=== PATIENT | male | born 1995 | race Caucasian/White ===

== ENCOUNTER 2018-03-01 10:53 | Emergency (ER) | payer OTHER ==
[2018-03-01 11:00] VITALS: RESP 18
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
[2018-03-01 13:16] VITALS: BP 128/82; PULSE 64; TEMP 98
== END 2018-03-01 13:15 | disposition home or self-care (01) ==
LOC: EC 10:53
DX: H00.011 Hordeolum externum right upper eyelid (principal); J45.909 Unspecified asthma, uncomplicated; F17.200 Nicotine dependence, unspecified, uncomplicated; Z88.0 Allergy status to penicillin
CPT/HCPCS: 99283

== ENCOUNTER 2018-12-26 12:35 | Emergency (ER) | payer OTHER ==
[2018-12-26 12:49] VITALS: BP 113/58; TEMP 98
[2018-12-26] MEDS ORDERED: IPRATROPIUM-ALBUTEROL 3 ML NEB INHALATION STA ×2 (12:49→13:55)
--- NOTE | 2018-12-26 12:50 | ED ---
SOB HPI - General Stated Complaint: TAYLOR Source: patient, RN notes reviewed, old records reviewed Mode of arrival: ambulatory Limitations: no limitations - History of Present Illness Initial Comments: This is a 23-year-old male the ER for evaluation, patient is a history of smoking history of asthma. Patient states he has quit smoking for 5 days of his shortness of breath as of late. No chest pain, no fevers. She has no prior admissions in the hospital for shortness of breath. No travel history or sick contacts. Patient states his wheezing cough is been increased for the last 5 days. Eyelids were unable to smoke. Patient has no significant medical history otherwise. Takes no medications MD Complaint: shortness of breath, cough -: week(s) Radiation: other (No pain) Consistency: constant Improves With: rest Worsens With: exertion Known History Of: asthma Context: recent URI - Related Data Home Medications Medication Instructions Recorded Confirmed Albuterol Inhaler [Ventolin 1 - 2 puff INHALATION RT-Q6H PRN 10/16/14 12/26/18 Inhaler] Previous Rx's Medication Instructions Recorded Albuterol Nebulized [Ventolin 2.5 mg INHALATION Q4H PRN #25 nebu 12/26/18 Nebulized] Albuterol Sulfate [Proair Hfa] 1 - 2 puff INHALATION Q4H PRN #1 12/26/18 inhaler Azithromycin [Zithromax Z-pack] 0 mg PO DIRECTED #1 pack 12/26/18 predniSONE 50 mg PO DAILY #5 tab 12/26/18 Allergies Allergy/AdvReac Type Severity Reaction Status Date / Time amoxicillin Allergy Severe Anaphylaxis Verified 12/26/18 13:19 Penicillins Allergy Rash/Hives Verified 12/26/18 13:19 Review of Systems ROS Statement: Those systems with pertinent positive or pertinent negative responses have been documented in the HPI. ROS Other: All systems not noted in ROS Statement are negative. Past Medical History Past Medical History: Asthma History of Any Multi-Drug Resistant Organisms: None Reported Additional Past Surgical History / Comment(s): right thumb surgery Past Psychological History: Anxiety, Depression Smoking Status: Current every day smoker Past Alcohol Use History: Occasional Past Drug Use History: Marijuana General Exam Limitations: no limitations General appearance: alert, in no apparent distress Head exam: Present: atraumatic, normocephalic, normal inspection Eye exam: Present: normal appearance, PERRL, EOMI. Absent: scleral icterus, conjunctival injection, periorbital swelling ENT exam: Present: normal exam, mucous membranes moist Neck exam: Present: normal inspection. Absent: tenderness, meningismus, lymphadenopathy Respiratory exam: Present: normal lung sounds bilaterally, wheezes. Absent: respiratory distress, rales, rhonchi, stridor Cardiovascular Exam: Present: normal rhythm, tachycardia, normal heart sounds. Absent: systolic murmur, diastolic murmur, rubs, gallop, clicks GI/Abdominal exam: Present: soft, normal bowel sounds. Absent: distended, tenderness, guarding, rebound, rigid Extremities exam: Present: normal inspection, full ROM, normal capillary refill. Absent: tenderness, pedal edema, joint swelling, calf tenderness Back exam: Present: normal inspection Neurological exam: Present: alert, oriented X3, CN II-XII intact Psychiatric exam: Present: normal affect, normal mood Skin exam: Present: warm, dry, intact, normal color. Absent: rash Course Vital Signs 12/26/18 12/26/18 12/26/18 12:47 13:12 13:28 Temperature 98.0 F Pulse Rate 121 H 124 H 117 H Respiratory 22 20 18 Rate Blood Pressure 113/58 O2 Sat by Pulse 95 Oximetry 12/26/18 12/26/18 14:25 14:33 Temperature Pulse Rate 111 H 112 H Respiratory 18 18 Rate Blood Pressure O2 Sat by Pulse Oximetry - Reevaluation(s) Reevaluation #1: 12/26/18 14:56 Medical records reviewed Reevaluation #2: 12/26/18 14:56 Symptoms significantly improved with second breathing treatment Medical Decision Making - Medical Decision Making 23 male the ER for evaluation of significant asthma exacerbation. Patient does not want hospital admission currently, urged to continue to quit smoking. Patient given breathing treatments and steroids and can be discharged home - Radiology Data Radiology results: report reviewed (Chest x-rays negative for acute disease), image reviewed Disposition Clinical Impression: Asthmatic bronchitis, Asthma exacerbation Disposition: HOME SELF-CARE Condition: Good Instructions (If sedation given, give patient instructions): Asthma (ED) Prescriptions: predniSONE 50 mg PO DAILY #5 tab Albuterol Sulfate [Proair Hfa] 1 - 2 puff INHALATION Q4H PRN #1 inhaler PRN Reason: Shortness Of Breath Albuterol Nebulized [Ventolin Nebulized] 2.5 mg INHALATION Q4H PRN #25 nebu PRN Reason: Shortness Of Breath Azithromycin [Zithromax Z-pack] 0 mg PO DIRECTED #1 pack Is patient prescribed a controlled substance at d/c from ED?: No Referrals: None,Stated [Primary Care Provider] - 1-2 days
[2018-12-26 13:28] VITALS: RESP 18
[2018-12-26] MEDS ORDERED: DEXAMETHASONE 4 MG TAB PO STA (13:55)
--- NOTE | 2018-12-26 14:25 | XR ---
EXAMINATION TYPE: XR chest 1V portable DATE OF EXAM: 12/26/2018 COMPARISON: None recent HISTORY: Cough and shortness of breath for 6 days TECHNIQUE: Single frontal view of the chest is obtained. FINDINGS: There is no focal air space opacity, pleural effusion, or pneumothorax seen. The cardiac silhouette size is within normal limits. Lungs are hyperexpanded and erin appear somewhat prominent. The osseous structures are intact. IMPRESSION: No acute process. Pulmonary hyperinflation and prominence of the erin raises suspicion f or COPD and possible pulmonary arterial hypertension although given the patient's age these findings may simply relate to vascular prominence and pulmonary hyperinflation. Correlation with pulmonary fun ction tests is recommended.
[2018-12-26 14:33] VITALS: PULSE 112
== END 2018-12-26 14:58 | disposition home or self-care (01) ==
LOC: EC 12:35
DX: J45.901 Unspecified asthma with (acute) exacerbation (principal); R00.0 Tachycardia, unspecified; Z87.891 Personal history of nicotine dependence; Z88.0 Allergy status to penicillin
CPT/HCPCS: 94640 ×2; 71045; 99285; J8540

== ENCOUNTER 2019-01-05 09:29 | Emergency (ER) | payer OTHER ==
[2019-01-05 09:35] VITALS: RESP 18
[2019-01-05] MEDS ORDERED: IPRATROPIUM-ALBUTEROL 3 ML NEB INHALATION STA (09:56)
[2019-01-05 10:32] VITALS: PULSE 83
--- NOTE | 2019-01-05 10:47 | XR ---
EXAMINATION TYPE: XR chest 2V DATE OF EXAM ORDERED: 01/05/2019 HISTORY: Difficulty breathing . REFERENCE: Previous study dated 12/26/2018. FINDINGS: The lungs are clear. Pleural spaces are clear. Heart size is normal. IMPRESSION: NORMAL CHEST.
[2019-01-05 11:24] VITALS: BP 128/85; TEMP 97.4
--- NOTE | 2019-01-05 11:51 | ED ---
General Adult HPI - General Chief complaint: Shortness of Breath Stated complaint: Sob/cough Time Seen by Provider: 01/05/19 09:30 Source: patient, RN notes reviewed Limitations: no limitations - History of Present Illness Initial comments: This is a 23-year-old male who presents emergency Department complaining of difficulty breathing over the last 2 days. Patient states he is a smoker though he states he quit this morning. Patient comes in stating his asthma got worse. Patient states he has been coughing low but no sputum production. Patient denies any fever chills. Patient denies any chest pain or palpitations per patient denies abdominal pain patient denies nausea vomiting diarrhea. - Related Data Home Medications Medication Instructions Recorded Confirmed Albuterol Nebulized [Ventolin 2.5 mg INHALATION RT-Q4H PRN 01/05/19 01/05/19 Nebulized] Previous Rx's Medication Instructions Recorded predniSONE 40 mg PO DAILY #8 tab 01/05/19 Allergies Allergy/AdvReac Type Severity Reaction Status Date / Time amoxicillin Allergy Severe Anaphylaxis Verified 01/05/19 09:47 Penicillins Allergy Rash/Hives Verified 01/05/19 09:47 Review of Systems ROS Statement: Those systems with pertinent positive or pertinent negative responses have been documented in the HPI. ROS Other: All systems not noted in ROS Statement are negative. Past Medical History Past Medical History: Asthma History of Any Multi-Drug Resistant Organisms: None Reported Additional Past Surgical History / Comment(s): right thumb surgery Past Psychological History: Anxiety, Depression Smoking Status: Current every day smoker Past Alcohol Use History: Occasional Past Drug Use History: Marijuana General Exam - General Exam Comments Initial Comments: GENERAL: Patient is well-developed and well-nourished. Patient is nontoxic and well- hydrated and is in mild distress. ENT: Neck is soft and supple. No significant lymphadenopathy is noted. Oropharynx is clear. Moist mucous membranes. Neck has full range of motion without eliciting any pain. EYES: The sclera were anicteric and conjunctiva were pink and moist. Extraocular movements were intact and pupils were equal round and reactive to light. Eyelids were unremarkable. PULMONARY: Diffuse expiratory wheezing CARDIOVASCULAR: There is a regular rate and rhythm without any murmurs gallops or rubs. ABDOMEN: Soft and nontender with normal bowel sounds. SKIN: Skin is clear with no lesions or rashes and otherwise unremarkable. NEUROLOGIC: Patient is alert and oriented x3. Cranial nerves II through XII are grossly intact. Motor and sensory are also intact. Normal speech, volume and content. Symmetrical smile. MUSCULOSKELETAL: Normal extremities with adequate strength and full range of motion. LYMPHATICS: No significant lymphadenopathy is noted PSYCHIATRIC: Normal psychiatric evaluation. Limitations: no limitations Course Vital Signs 01/05/19 01/05/19 01/05/19 09:32 10:21 10:29 Temperature 97.9 F Pulse Rate 91 72 76 Respiratory 18 Rate Blood Pressure 117/77 O2 Sat by Pulse 98 Oximetry 01/05/19 01/05/19 10:32 11:22 Temperature 97.4 F L Pulse Rate 83 83 Respiratory 18 18 Rate Blood Pressure 128/85 O2 Sat by Pulse 98 99 Oximetry Disposition Clinical Impression: Asthma exacerbation Disposition: HOME SELF-CARE Instructions (If sedation given, give patient instructions): Asthma (ED) Prescriptions: predniSONE 40 mg PO DAILY #8 tab Is patient prescribed a controlled substance at d/c from ED?: No Referrals: None,Stated [Primary Care Provider] - 1-2 days Time of Disposition: 11:51
[2019-01-05] MEDS ORDERED: LORazepam 1 MG TAB PO STA (12:10)
== END 2019-01-05 12:16 | disposition home or self-care (01) ==
LOC: EC 09:29
DX: J45.901 Unspecified asthma with (acute) exacerbation (principal); F17.200 Nicotine dependence, unspecified, uncomplicated; Z88.0 Allergy status to penicillin
CPT/HCPCS: 71046; 94640; 99285

== ENCOUNTER 2019-11-23 11:43 | Emergency (ER) | payer OTHER ==
[2019-11-23] MEDS ORDERED: SODIUM CHLORIDE 0.9% 500 ML 500 ML IV STA (12:18)
[2019-11-23] MEDS ORDERED: SODIUM CHLORIDE 0.9% 1,000 ML IV STA ×3 (12:18→13:12)
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
[2019-11-23 12:35] LABS: Basophils # (A) 0.1 k/uL (0-0.2); Basophils % (A) 0 %; Eosinophils # (A) 0.2 k/uL (0-0.7); Eosinophils % (A) 1 %; HGB 17.3 gm/dL (13.0-17.5); Lymphocytes # (A) 1.7 k/uL (1.0-4.8); Lymphocytes % (A) 7 %; MCH 30.1 pg (25.0-35.0); MCHC 33.3 g/dL (31.0-37.0); MCV 90.2 fL (80.0-100.0); Mean Platelet Volume 8.2; Monocytes # (A) 1.5 k/uL (0-1.0); Monocytes % (A) 6 %; Neutrophils % (A) 85 %; Platelet Count 374 k/uL (150-450); RBC 5.77 m/uL (4.30-5.90); RDW 13.2 % (11.5-15.5); WBC 24.8 k/uL (3.8-10.6)
[2019-11-23 12:43] LABS: ALT 30 U/L (4-49); AST 36 U/L (17-59); African American GFR (CKD) >90 (>60 ml/min/1.73 sqM); Alcohol <10 mg/dL; Alkaline Phosphatase 110 U/L (38-126); Anion Gap 15 mmol/L; Blood Urea Nitrogen 9 mg/dL (9-20); Calcium 9.8 mg/dL (8.4-10.2); Carbon Dioxide 18 mmol/L (22-30); Chloride 105 mmol/L (98-107); Creatine Kinase 164 U/L (55-170); Glucose 126 mg/dL (74-99); Magnesium 1.6 mg/dL (1.6-2.3); Non-African American GFR(CKD) >90 (>60 ml/min/1.73 sqM); Phosphorus 2.8 mg/dL (2.5-4.5); Potassium 4.1 mmol/L (3.5-5.1); Sodium 138 mmol/L (137-145); Total Bilirubin 1.4 mg/dL (0.2-1.3); Total Protein 7.8 g/dL (6.3-8.2)
[2019-11-23] MEDS ORDERED: ACET/COD 300 MG/30 MG STARTER PACK 6 TAB BTL PO STA (12:57)
[2019-11-23] MEDS ORDERED: MORPHINE SULFATE 4 MG/ML SYRINGE IVP STA (12:57)
[2019-11-23] MEDS ORDERED: KETOROLAC 30 MG/ML 1 ML VIAL IVP STA (12:57)
[2019-11-23 13:59] VITALS: BP 143/94; PULSE 87; RESP 16; TEMP 97.8
== END 2019-11-23 15:08 | disposition home or self-care (01) ==
LOC: EC 11:43
DX: T24.202A Burn of second degree of unspecified site of left lower limb, except ankle and foot, initial encounter (principal); T24.201A Burn of second degree of unspecified site of right lower limb, except ankle and foot, initial encounter; T23.202A Burn of second degree of left hand, unspecified site, initial encounter; T23.201A Burn of second degree of right hand, unspecified site, initial encounter; T31.0 Burns involving less than 10% of body surface; J45.909 Unspecified asthma, uncomplicated; F17.200 Nicotine dependence, unspecified, uncomplicated; Z88.0 Allergy status to penicillin; X08.8XXA Exposure to other specified smoke, fire and flames, initial encounter
CPT/HCPCS: 36415; 80053; 82550; 83735; 84100; 85025; 80320; 99284; 96365; 96375 ×2; 96361; J2270; J0690; J1885

== ENCOUNTER 2022-05-05 09:22 | Inpatient (IN) | payer OTHER ==
--- NOTE | 2022-05-05 09:28 | ED ---
Psych HPI - General Stated Complaint: Mental Health Time Seen by Provider: 05/05/22 09:27 Source: patient, RN notes reviewed Mode of arrival: ambulatory Limitations: no limitations - History of Present Illness Initial Comments: This a 26-year-old male presents emergency Department with chief complaint of alcohol abuse, anxiety depression, withdrawal. Patient states that he has been drinking very heavily for last 4-5 years. Patient states she drinks 7 to beers daily suppression 14 beers daily. He states he does have withdrawal symptoms and cleaning severe shaking nausea vomiting diarrhea. He states he tends not to wait that long because he knows this can happen. He does admit to alcohol use just prior arrival. Patient has underlying anxiety, depression he states he does not have any current thoughts of suicide. Patient has no physical complaints. He has been talking the counseling advised him come emergency department for treatment as patient is concerned about his withdrawal. Patient denies history of pancreatitis, no known hepatitis. - Related Data Home Medications Medication Instructions Recorded Confirmed No Known Home Medications 05/05/22 05/05/22 Allergies Allergy/AdvReac Type Severity Reaction Status Date / Time amoxicillin Allergy Severe Anaphylaxis Verified 05/05/22 12:28 Penicillins Allergy Rash/Hives Verified 05/05/22 12:28 Review of Systems ROS Statement: Those systems with pertinent positive or pertinent negative responses have been documented in the HPI. ROS Other: All systems not noted in ROS Statement are negative. Past Medical History Past Medical History: Asthma History of Any Multi-Drug Resistant Organisms: None Reported Additional Past Surgical History / Comment(s): right thumb surgery Past Psychological History: Anxiety, Depression Past Alcohol Use History: Occasional Past Drug Use History: Marijuana General Exam Limitations: no limitations General appearance: alert, in no apparent distress Head exam: Present: atraumatic, normocephalic, normal inspection Eye exam: Present: normal appearance, PERRL, EOMI. Absent: scleral icterus, conjunctival injection, periorbital swelling ENT exam: Present: normal exam, normal oropharynx, mucous membranes moist Neck exam: Present: normal inspection, full ROM. Absent: tenderness, meningismus, lymphadenopathy Respiratory exam: Present: normal lung sounds bilaterally. Absent: respiratory distress, wheezes, rales, rhonchi, stridor Cardiovascular Exam: Present: regular rate, normal rhythm, normal heart sounds. Absent: systolic murmur, diastolic murmur, rubs, gallop, clicks GI/Abdominal exam: Present: soft, normal bowel sounds. Absent: distended, tenderness, guarding, rebound, rigid Neurological exam: Present: alert Skin exam: Present: warm, dry, intact, normal color. Absent: rash Course Vital Signs 05/05/22 05/05/22 05/05/22 09:31 10:35 11:56 Temperature 98 F 98.2 F Pulse Rate 117 H 94 98 Respiratory 18 16 16 Rate Blood Pressure 168/92 145/94 134/96 O2 Sat by Pulse 96 97 98 Oximetry Medical Decision Making - Medical Decision Making 18-year-old presented for alcohol withdrawal, alcohol abuse. Patient's found to have alcohol hepatitis, started to have severe withdrawal symptoms. Patient will be admitted for alcohol withdrawal, further monitoring management. - Lab Data Result diagrams: 05/05/22 10:34 05/05/22 10:34 Lab Results 05/05/22 05/05/22 Range/Units 10:34 10:34 WBC 4.9 (3.8-10.6) k/uL RBC 5.53 (4.30-5.90) m/uL Hgb 18.1 H (13.0-17.5) gm/dL Hct 50.8 (39.0-53.0) % MCV 91.9 (80.0-100.0) fL MCH 32.8 (25.0-35.0) pg MCHC 35.7 (31.0-37.0) g/dL RDW 12.9 (11.5-15.5) % Plt Count 187 (150-450) k/uL MPV 8.0 Neutrophils % 77 % Lymphocytes % 11 % Monocytes % 8 % Eosinophils % 1 % Basophils % 2 % Neutrophils # 3.8 (1.3-7.7) k/uL Lymphocytes # 0.5 L (1.0-4.8) k/uL Monocytes # 0.4 (0-1.0) k/uL Eosinophils # 0.1 (0-0.7) k/uL Basophils # 0.1 (0-0.2) k/uL Sodium 140 (137-145) mmol/L Potassium 3.7 (3.5-5.1) mmol/L Chloride 102 (98-107) mmol/L Carbon Dioxide 19 L (22-30) mmol/L Anion Gap 19 mmol/L BUN 5 L (9-20) mg/dL Creatinine 0.60 L (0.66-1.25) mg/dL Est GFR (CKD-EPI)AfAm >90 (>60 ml/min/1.73 sqM) Est GFR (CKD-EPI)NonAf >90 (>60 ml/min/1.73 sqM) Glucose 123 H (74-99) mg/dL Calcium 9.8 (8.4-10.2) mg/dL Magnesium 2.1 (1.6-2.3) mg/dL Total Bilirubin 2.1 H (0.2-1.3) mg/dL AST 297 H (17-59) U/L ALT 198 H (4-49) U/L Alkaline Phosphatase 116 (38-126) U/L Total Protein 9.2 H (6.3-8.2) g/dL Albumin 5.7 H (3.5-5.0) g/dL Lipase 75 (23-300) U/L Disposition Clinical Impression: Alcohol abuse, Alcohol withdrawal, Alcoholic hepatitis Disposition: ADMITTED IP TO THIS HOSP Condition: Fair Referrals: None,Stated [Primary Care Provider] - 1-2 days [facility] [NON-STAFF] - 1-2 days Forms: Outpatient Counseling, Inp Substance Abuse Facilities Time of Disposition: 12:36
[2022-05-05] MEDS ORDERED: SODIUM CHLORIDE 0.9% 1,000 ML IV ONE (09:51)
[2022-05-05] MEDS ORDERED: SODIUM CHLORIDE 0.9% 500 ML 500 ML IV ONE (09:51)
[2022-05-05 10:39] LABS: Basophils # (A) 0.1 k/uL (0-0.2); Basophils % (A) 2 %; Eosinophils # (A) 0.1 k/uL (0-0.7); Eosinophils % (A) 1 %; HCT 50.8 % (39.0-53.0); HGB 18.1 gm/dL (13.0-17.5); Lymphocytes # (A) 0.5 k/uL (1.0-4.8); Lymphocytes % (A) 11 %; MCH 32.8 pg (25.0-35.0); MCHC 35.7 g/dL (31.0-37.0); MCV 91.9 fL (80.0-100.0); Monocytes # (A) 0.4 k/uL (0-1.0); Monocytes % (A) 8 %; Neutrophils # (A) 3.8 k/uL (1.3-7.7); Neutrophils % (A) 77 %; Platelet Count 187 k/uL (150-450); RBC 5.53 m/uL (4.30-5.90); RDW 12.9 % (11.5-15.5); WBC 4.9 k/uL (3.8-10.6)
[2022-05-05 10:51] LABS: ALT 198 U/L (4-49); AST 297 U/L (17-59); African American GFR (CKD) >90 (>60 ml/min/1.73 sqM); Albumin 5.7 g/dL (3.5-5.0); Alkaline Phosphatase 116 U/L (38-126); Anion Gap 19 mmol/L; Blood Urea Nitrogen 5 mg/dL (9-20); Calcium 9.8 mg/dL (8.4-10.2); Carbon Dioxide 19 mmol/L (22-30); Chloride 102 mmol/L (98-107); Glucose 123 mg/dL (74-99); Lipase 75 U/L (23-300); Magnesium 2.1 mg/dL (1.6-2.3); Non-African American GFR(CKD) >90 (>60 ml/min/1.73 sqM); Potassium 3.7 mmol/L (3.5-5.1); Sodium 140 mmol/L (137-145); Total Bilirubin 2.1 mg/dL (0.2-1.3); Total Protein 9.2 g/dL (6.3-8.2)
[2022-05-05] MEDS ORDERED: LORazepam 0.5 MG TAB PO PRN (12:34)
[2022-05-05] MEDS ORDERED: LORazepam 1 MG TAB PO PRN ×4 (12:34)
[2022-05-05] MEDS ORDERED: LORazepam 2 MG/ML INJ IV PRN (12:34)
[2022-05-05] MEDS ORDERED: NALOXONE 0.4 MG/ML 1 ML VIAL IV PRN (12:38)
[2022-05-05] MEDS ORDERED: ONDANSETRON 4 MG/2 ML VIAL IVP PRN (12:38)
[2022-05-05] MEDS: SODIUM CHLORIDE 0.9% 1,000 ML IV SCH (14:37)
[2022-05-05 15:08] LABS: Amphetamine Screen,Urine Not Detected (NotDetected); Barbiturate Screen,Urine Not Detected (NotDetected); Benzodiazepines Screen,Urine Not Detected (NotDetected); Cocaine Screen,Urine Not Detected (NotDetected); Methadone Screen, Urine Not Detected (NotDetected); Opiate Screen,Urine Not Detected (NotDetected); Oxycodone Screen, Urine Not Detected (NotDetected); Phencyclidine Screen,Urine Not Detected (NotDetected); Tricyclic Antidepressant,Urine Not Detected (NotDetected); Urn Cannabinoid Scrn Detected (NotDetected)
[2022-05-05] MEDS: SERTRALINE 50 MG TAB PO SCH (15:38)
--- NOTE | 2022-05-05 15:44 | P.CN ---
Psychiatric Consult - . Consult date: 05/05/22 Consult:: 05/05/22 13:09 IDENTIFYING DATA: This patient is a 26-year-old male who currently lives with his mother, brother to kids and stepfather. They live in a house. He is from the unemployed since December. He used to work in a gas station. REASON FOR REFERRAL: Psychiatry was consulted for depression and alcohol abuse HISTORY OF PRESENT ILLNESS: The patient presented to the hospital on 05/05 for alcohol abuse, depression and withdrawal. Patient apparently has been reporting increase in his drinking for the past 4 or 5 years. Patient apparently was presenting with nausea and vomiting and also with withdrawal symptoms. Patient has a history of depression and anxiety apparently. Patient's LFTs were elevated and total bilirubin as well. Patient was seen lying in the bed and was fairly appropriate in attempting to be directable. He appeared to be somewhat anxious and had tremors in his hands and states that he is going through withdrawals at this time and presented the hospital for "detoxing". He claims that he does have some underlying depression and anxiety and claims that he does have some childhood trauma. He claims that his father "left it side of the road when I was small" and claims that one of his 3 children about 2 years ago which she has not been able to cope with well. He claims that he does get into arguments and has tension with his stepfather in the home. He claims that he lost his job in December and has been struggling a bit financially. He claims that his sleep and appetite are poor. He claims that he was drinking about 6-7 tall boys of beer per day. He claims that he does not have any history of DTs however does usually have tremors and starts sweating and usually relapses back on drinking before he withdrawals. Denies any withdrawal seizures in the past. He claims that they did have an intervention at home for him with his family which caused him to come into the hospital. At this time patient denies any suicidal or homical ideations, intent or plan. Patient denies any auditory, visual hallucinations and denies any paranoia or delusions. Patients admits to using alcohol as noted above. He claims that he has not gone to rehab before. He claims that he uses marijuana frequently and smokes cigarettes daily. PAST PSYCHIATRIC HISTORY: Patient has a a history of alcohol use disorder, underlying depression and anxiety. Patient denies being on any psychiatric medications. Patient denies any previous psychiatric hospitalizations. Patient denies any psychiatric outpatient follow-up. He claims that he used to talk with a therapist over the phone with "better help". He states that his phone therapy session stopped in summer because he could not afford it any longer. Patient denies any history of suicide attempts in the past. Past Medical History: Asthma History of Any Multi-Drug Resistant Organisms: None Reported ALLERGIES: as per EMR. CHEMICAL DEPENDENCY HISTORY: as per HPI. FAMILY PSYCHIATRIC/SUBSTANCE USE HISTORY: He claims that his uncle committed suicide in his . SOCIAL HISTORY: Patient was born and raised in [facility] and also in [place]. He claims that he completed up to 11th grade in school. He states that he does not have any legal history. He claims that he has 2 kids, lives with one of his kids, his brother step father and also has mother. The house. He claims that he is unemployed at this time over used to work in a gas station.. MENTAL STATUS EXAM: General Appearance: Patient appears to be , longer hair, stated age is alert, pleasant, and attempts to be cooperative. Tremors in his hands. Patient appears to have fair hygiene and grooming wearing hospital gown with fair eye contact. Behavior: Patient is calmly lying in bed without any agitated behavior. Attempts to cooperate. Pleasant. Speech: Patient's speech is fluent and nonpressured. Hesitant Mood/Affect: Patient reports their mood is "but better now", affect is congruent Suicidality/Homicidality: Patient denies having any suicidal or homicidal ideation intent or plan. Perceptions: Patient denies any visual hallucinations and denies any auditory hallucinations Though content/process: There is no evidence of any delusional thought content and thought process is linear and goal-directed. Rambles at times. Memory and concentration: AOX3, grossly intact for the purposes of this session. Can spell "WORLD" backwards Judgment and insight: Fair IMPRESSIONS: Alcohol use disorder, severe dependence, currently in withdrawal History of depressive disorder History of anxiety disorder Cannabis use disorder Nicotine dependence PLAN: -At this time patient DOES NOT meet criteria for inpatient psychiatric admission. -Would recommend the following medication changes/additions: Started Librium 20 mg 4 times a day for alcohol withdrawal with the plan to taper down. Acamprosate 333 mg 3 times a day for alcohol cravings, trazodone 50 mg daily at bedtime for insomnia/mood, Zoloft 50 mg daily for mood/anxiety -CIWA protocol with PRN Ativan for alcohol withdrawal. Continue to monitor vital signs. -utility service worker to provide patient with outpatient mental health/psychiatry resources for appropriate follow up upon discharge -Fiction Writer spoke with patient about substance abuse and the harmful effects on medical and mental health, patient verbally understood and agreed. -utility service worker to provide patient substance use treatment resources including AA/NA meetings in the community. -utility service worker to provide patient with access line number to call for inpatient substance rehab -Communicated plan to patient's nurse -Will continue to follow along -patient wants to do outpatient substance abuse treatment instead of inpatient rehab. -Please contact with any questions. 05/05/22 15:38
[2022-05-05] MEDS: ACAMPROSATE CALCIUM 333 MG TABLET.DR PO SCH (18:04)
[2022-05-05 19:38] VITALS: TEMP 98
[2022-05-05] MEDS ORDERED: traZODone HCL 50 MG TAB PO SCH (21:00)
[2022-05-05] MEDS ORDERED: ALBUTEROL NEBULIZED 2.5 MG/3 ML INHALATION PRN (23:00)
[2022-05-05] MEDS ORDERED: ACETAMINOPHEN TAB 325 MG TAB PO PRN (23:02)
--- NOTE | 2022-05-05 23:17 | HP ---
HISTORY AND PHYSICAL CHIEF COMPLAINT: Alcohol withdrawal. HISTORY OF PRESENT ILLNESS: This is a 26-year-old gentleman with a past medical history of asthma, was admitted with alcohol intoxication and withdrawal. The patient has planned to go to rehab. There is no history of any fever, rigors. No history of headache, loss of seizures. PAST MEDICAL HISTORY: EtOH, history of asthma. The rest of the history and rest of the chart is reviewed. HOME MEDICATIONS: None. ALLERGIES: Reviewed, amoxicillin, penicillin. FAMILY HISTORY: No history of heart disease or strokes in the family. SOCIAL HISTORY: History of smoking ongoing. REVIEW OF SYSTEMS: A 14-point review of systems is negative except as mentioned earlier. PHYSICAL EXAMINATION: VITAL SIGNS: Pulse is 98, blood pressure 135/93, respirations 16. HEENT: Conjunctivae normal. NECK: No JVD. CARDIOVASCULAR: S1, S2 muffled. RESPIRATIONS: Breath sounds diminished at the bases. No rhonchi. No crackles. ABDOMEN: Soft, nontender. LEGS: No edema. NERVOUS SYSTEMS: No focal deficits. LABS: Reviewed. ASSESSMENT: 1. Acute alcohol intoxication and withdrawal. 2. Asthma. 3. Anxiety. 4. Depression. RECOMMENDATIONS AND DISCUSSION: This is a 26-year-old gentleman, who presented with multiple complex medical issues. We will monitor the patient closely. We will initiate CIWA protocol, psych consultation. Arrange outpatient drug rehab. Prognosis guarded because of multiple complex medical issues and further recommendations to follow. MMODL / IJN: [id number] /
[2022-05-06] MEDS: SODIUM CHLORIDE 0.9% 1,000 ML IV SCH (03:06)
[2022-05-06] MEDS ORDERED: PANTOPRAZOLE 40 MG TABLET PO SCH (07:30)
[2022-05-06 07:56] VITALS: BP 141/84; PULSE 63; RESP 17
[2022-05-06] MEDS: SERTRALINE 50 MG TAB PO SCH (08:56)
[2022-05-06] MEDS: ACAMPROSATE CALCIUM 333 MG TABLET.DR PO SCH (08:56)
[2022-05-06] MEDS ORDERED: THIAMINE 100 MG TAB PO SCH (09:00)
--- NOTE | 2022-05-07 17:42 | DS ---
DISCHARGE SUMMARY FINAL DIAGNOSES: 1. Acute alcohol intoxication and withdrawal. 2. Asthma. 3. Anxiety. 4. Depression. DISCHARGE DISPOSITION: The patient will be discharged in stable condition with guarded prognosis. HISTORY OF PRESENT ILLNESS: This is a 26-year-old gentleman with a past medical history of multiple medical problems admitted with acute alcohol withdrawal and delirium tremens, treated symptomatically, improved significantly. PHYSICAL EXAMINATION: VITAL SIGNS: Stable. CARDIOVASCULAR: S1, S2. ABDOMEN: Soft. NERVOUS SYSTEM: No focal deficits. DISCHARGE INSTRUCTIONS: 1. Diet is cardiac. 2. Follow up with primary physician and attend AA meetings and rehab. 3. Outpatient medications. Continue with Campral mg t.i.d. and Zoloft 50 mg daily. . MEI / RUBYN: [id number] /
== END 2022-05-06 12:41 | disposition home or self-care (01) | DRG 897 ==
LOC: EC 09:22 → 4SSUR 12:38
PROVIDERS: ADMIT Hospitalist; ATTEND Hospitalist
PROC: HZ2ZZZZ Detoxification Services for Substance Abuse Treatment (ICD-10-PCS; principal; 2022-05-05)
DX: F10.229 Alcohol dependence with intoxication, unspecified (principal); F10.239 Alcohol dependence with withdrawal, unspecified; F32.A Depression, unspecified; F41.9 Anxiety disorder, unspecified; J45.909 Unspecified asthma, uncomplicated; K70.10 Alcoholic hepatitis without ascites; Z87.891 Personal history of nicotine dependence; F12.90 Cannabis use, unspecified, uncomplicated; Z71.41 Alcohol abuse counseling and surveillance of alcoholic; Z88.1 Allergy status to other antibiotic agents; Z88.0 Allergy status to penicillin
CPT/HCPCS: 36415; 80053; 80306; 82075; 83690; 83735; 85025; 96360; 96361; 99285

== ENCOUNTER 2024-11-16 00:25 | Emergency (ER) | payer SELFPAY ==
[2024-11-16 00:32] VITALS: BP 192/123; PULSE 75; RESP 18; TEMP 98
--- NOTE | 2024-11-16 01:01 | ED ---
ENT HPI - General Chief complaint: Dental/Oral Stated complaint: tooth pain Time Seen by Provider: 11/16/24 00:41 Source: patient, RN notes reviewed Mode of arrival: ambulatory Limitations: no limitations - History of Present Illness Initial comments: This is a 29-year-old male presenting for dental pain (07/01) x 7 days. Patient endorses pain in his left lower molar that was extremely painful prior to use of Motrin 800 3 hours ago. Also endorses Orajel use with minimal relief. Patient endorses history of poor dentition. States he is scheduled for dental appointment in mid November. Denies fever, chills, oropharyngeal edema, dyspnea, elevation of floor of mouth, trismus. MD complaint: tooth pain Onset/Timin -: days(s) 1 - Broken, cavity Severity scale (1-10): 2 Consistency: constant, now resolved Context- Dental: history of dental caries, poor dental care Associated Symptoms: toothache - Related Data Home Medications Medication Instructions Recorded Confirmed Albuterol Sulfate [Proair INHALATION RT-Q6H PRN 05/05/22 Respiclick] Previous Rx's Medication Instructions Recorded Acamprosate Calcium [Campral] 333 mg PO TID 30 Days #90 tab 05/06/22 Acetaminophen Tab [Tylenol] 650 mg PO Q6HR PRN tab 05/06/22 Sertraline [Zoloft] 50 mg PO DAILY #30 tab 05/06/22 Thiamine [Vitamin B-1] 100 mg PO DAILY #30 tab 05/06/22 chlordiazePOXIDE HCl [Librium] 25 mg PO TID 3 Days #6 capsule 05/06/22 Chlorhexidine Gluconate [Peridex] 15 ml PO BID #473 ml 11/16/24 Ibuprofen [Motrin] 800 mg PO Q8HR PRN #30 tab 11/16/24 clindamycin HCL 300 mg PO QID #40 cap 11/16/24 predniSONE 50 mg PO DAILY #5 tab 11/16/24 Allergies Allergy/AdvReac Type Severity Reaction Status Date / Time amoxicillin Allergy Severe Anaphylaxis Verified 11/16/24 00:31 Penicillins Allergy Rash/Hives Verified 11/16/24 00:31 Review of Systems ROS Statement: Those systems with pertinent positive or pertinent negative responses have been documented in the HPI. ROS Other: All systems not noted in ROS Statement are negative. Past Medical History Past Medical History: Asthma History of Any Multi-Drug Resistant Organisms: None Reported Additional Past Surgical History / Comment(s): right thumb surgery Past Psychological History: Anxiety, Depression Smoking Status: Current every day smoker Past Alcohol Use History: Occasional Past Drug Use History: Marijuana - Past Family History Father Family Medical History: No Reported History General Exam Limitations: no limitations General appearance: alert, in no apparent distress Head exam: Present: atraumatic, normocephalic, normal inspection Eye exam: Present: normal appearance, PERRL, EOMI. Absent: scleral icterus, conjunctival injection, periorbital swelling ENT exam: Present: normal exam, mucous membranes moist. Absent: normal oropharynx (Extremely poor dentition throughout with numerous dental caries and missing teeth. Gingiva almost guillory in appearance) Neck exam: Present: normal inspection. Absent: tenderness, meningismus, lymphadenopathy Respiratory exam: Present: normal lung sounds bilaterally. Absent: respiratory distress, wheezes, rales, rhonchi, stridor Cardiovascular Exam: Present: regular rate, normal rhythm, normal heart sounds. Absent: systolic murmur, diastolic murmur, rubs, gallop, clicks GI/Abdominal exam: Present: soft, normal bowel sounds. Absent: distended, tenderness, guarding, rebound, rigid Extremities exam: Present: normal inspection, full ROM, normal capillary refill. Absent: tenderness, pedal edema, joint swelling, calf tenderness Back exam: Present: normal inspection Neurological exam: Present: alert, oriented X3, CN II-XII intact Psychiatric exam: Present: normal affect, normal mood Skin exam: Present: warm, dry, intact, normal color. Absent: rash Course Vital Signs 11/16/24 00:28 Temperature 98 F Pulse Rate 75 Respiratory 18 Rate Blood Pressure 192/123 O2 Sat by Pulse 100 Oximetry Medical Decision Making - Medical Decision Making Was pt. sent in by a medical professional or institution (, PA, ASSEMBLY ASSOCIATE, urgent care, hospital, or skilled nursing...) When possible be specific @ -No Did you speak to anyone other than the patient for history (EMS, parent, family, police, friend...)? What history was obtained from this source @ -No Did you review nursing and triage notes (agree or disagree)? Why? @ -I reviewed and agree with nursing and triage notes Were old charts reviewed (outside hosp., previous admission, EMS record, old EKG, old radiological studies, urgent care reports/EKG's, skilled nursing records)? Report findings @ -No old charts were reviewed Differential Diagnosis (chest pain, altered mental status, abdominal pain women, abdominal pain men, vaginal bleeding, weakness, fever, dyspnea, syncope, headache, dizziness, GI bleed, back pain, seizure, CVA, palpatations, mental health, musculoskeletal)? @ -Dental abscess, periapical abscess, dental cavity, ANUG, Sim's angina, gingivitis, this is not an exhaustive list EKG interpreted by me (3pts min.). @ -Not done X-rays interpreted by me (1pt min.). @ -None done CT interpreted by me (1pt min.). @ -None done U/S interpreted by me (1pt. min.). @ -None done What testing was considered but not performed or refused? (CT, X-rays, U/S, labs)? Why? @ -None What meds were considered but not given or refused? Why? @ -None Did you discuss the management of the patient with other professionals (professionals i.e. , PA, ASSEMBLY ASSOCIATE, lab, RT, psych nurse, oncology social work, spark tester, teacher, crime prevention police officer, case aide)? Give summary @ -No Was smoking cessation discussed for >3mins.? @ -No Was critical care preformed (if so, how long)? @ -No Were there social determinants of health that impacted care today? How? (Homelessness, low income, unemployed, alcoholism, drug addiction, transportati on, low edu. Level, literacy, decrease access to med. care, prison, rehab)? @ -No Was there de-escalation of care discussed even if they declined (Discuss DNR or withdrawal of care, Hospice)? DNR status @ -No What co-morbidities impacted this encounter? (DM, HTN, Smoking, COPD, CAD, Cancer, CVA, ARF, Chemo, Hep., AIDS, mental health diagnosis, sleep apnea, morbid obesity)? @ -None Was patient admitted / discharged? Hospital course, mention meds given and route, prescriptions, significant lab abnormalities, going to OR and other pertinent info. @ -Initial dose of p.o. clindamycin provided. Patient states pain is well- controlled at this time. Clindamycin, Motrin 800, chlorhexidine mouthwash, p rednisone sent to patient's pharmacy. Advise follow-up with scheduled dental appointment for further evaluation and management of dental issues. Discussed patient with Dr. Boss. Undiagnosed new problem with uncertain prognosis? @ -No Drug Therapy requiring intensive monitoring for toxicity (Heparin, Nitro, Insulin, Cardizem)? @ -No Were any procedures done? @ -No Diagnosis/symptom? @ -Dental abscess, ANUG Acute, or Chronic, or Acute on Chronic? @ -Acute Uncomplicated (without systemic symptoms) or Complicated (systemic symptoms)? @ -Uncomplicated Side effects of treatment? @ -No Exacerbation, Progression, or Severe Exacerbation? @ -No Poses a threat to life or bodily function? How? (Chest pain, [place], [place], pneumonia, PE, COPD, DKA, ARF, appy, cholecystitis, CVA, Diverticulitis, Homicidal, Suicidal, threat to staff... and all critical care pts) @ -No Disposition Clinical Impression: Dental abscess, Acute necrotizing ulcerative gingivitis, Dental caries Disposition: HOME SELF-CARE Condition: Fair Instructions (If sedation given, give patient instructions): Dental Abscess (ED), Trench Mouth (ED) Additional Instructions: Alternate Tylenol/Motrin every 4 hours for pain. Swish and spit warm salt water as needed. Follow-up for scheduled dentist appointment for ongoing care/management of dentition. Prescriptions: clindamycin HCL 300 mg PO QID #40 cap Ibuprofen [Motrin] 800 mg PO Q8HR PRN #30 tab PRN Reason: Pain Chlorhexidine Gluconate [Peridex] 15 ml PO BID #473 ml predniSONE 50 mg PO DAILY #5 tab Is patient prescribed a controlled substance at d/c from ED?: No Referrals: None,Stated [Primary Care Provider] - 1-2 days Sherrie Hwang DMD [STAFF PHYSICIAN] - 1-2 days Time of Disposition: 01:01
[2024-11-16] MEDS: CLINDAMYCIN 150 MG CAP PO STA (01:05)
== END 2024-11-16 02:00 | disposition home or self-care (01) ==
LOC: EC 00:25
DX: K02.9 Dental caries, unspecified (principal); K04.7 Periapical abscess without sinus; A69.1 Other Vincent's infections; F17.200 Nicotine dependence, unspecified, uncomplicated; Z88.0 Allergy status to penicillin
CPT/HCPCS: 99282